=== PATIENT | female | born 1970 | race Caucasian/White ===

== ENCOUNTER 2017-04-29 09:28 | Emergency (ER) | payer SELFPAY ==
[~2017-04-29] VITALS: Ht 170.2 cm; Wt 81.6 kg
[2017-04-29 09:40] VITALS: BP 161/80
[2017-04-29] MEDS ORDERED: KETOROLAC TROMETHAMINE 30 MG/ML INJ. IV ONE (09:45)
[2017-04-29] MEDS ORDERED: ONDANSETRON ODT 4 MG TAB.RAPDIS. PO ONE (09:45)
[2017-04-29] MEDS ORDERED: ONDANSETRON ODT 4 MG TAB.RAPDIS. ONE (09:46)
--- NOTE | 2017-04-29 10:10 | PHYS DOC ---
Past Medical History Past Medical History: Anxiety, Depression, Migraines, Other Additional Past Medical Histor: chronic back pain Past Surgical History: Cholecystectomy, Hysterectomy, Tonsillectomy, Tubal ligation Alcohol Use: None Drug Use: None Adult General Chief Complaint Chief Complaint: ABDOMINAL PAIN HPI HPI Patient is a 46 year old female presents to the emergency department with complaints of low back pain. She states she has long-standing history of low back pain with acute onset 2 days ago after lifting her grandchild. She states that she then began having nausea this morning. She does not report vomiting. She has no urinary symptoms. No abdominal pain. No fever. No loss of function of lower extremities or loss of bowel or bladder control. Review of Systems Review of Systems Constitutional: Denies fever or chills [] Eyes: Denies change in visual acuity, redness, or eye pain [] HENT: Denies nasal congestion or sore throat [] Respiratory: Denies cough or shortness of breath [] Cardiovascular: No additional information not addressed in HPI [] GI: Denies abdominal pain, nausea, vomiting, bloody stools or diarrhea [] : Denies dysuria or hematuria [] Musculoskeletal: low back pain Integument: Denies rash or skin lesions [] Neurologic: Denies headache, focal weakness or sensory changes [] Endocrine: Denies polyuria or polydipsia [] Current Medications Current Medications Current Medications Medications (Trade) Dose Ordered Sig/Kayce Start Time Stop Time Status Last Admin Dose Admin Ketorolac Tromethamine (Toradol Im) 60 mg 1X ONCE 04/29/17 10:45 04/29/17 10:46 DC 04/29/17 10:42 60 MG Ketorolac Tromethamine (Toradol) 30 mg 1X ONCE 04/29/17 09:45 04/29/17 10:36 DC Ondansetron HCl (Zofran Odt) 4 mg 1X ONCE 04/29/17 09:45 04/29/17 09:49 DC 04/29/17 09:48 4 MG Allergies Allergies Allergies Coded Allergies Type Severity Reaction Last Updated Verified codeine Allergy Intermediate Itching 04/06/15 No droperidol Allergy Intermediate Anxiety 04/06/15 No lorazepam Allergy Intermediate Anxiety 04/06/15 No prochlorperazine Allergy Intermediate Anxiety 04/06/15 No Physical Exam Physical Exam Constitutional: Well developed, well nourished, no acute distress, non-toxic appearance. [] HENT: Normocephalic, atraumatic, bilateral external ears normal, oropharynx moist, no oral exudates, nose normal. [] Eyes: PERRLA, EOMI, conjunctiva normal, no discharge. [] Neck: Normal range of motion, no tenderness, supple, no stridor. [] Cardiovascular:Heart rate regular rhythm, no murmur [] Lungs & Thorax: Bilateral breath sounds clear to auscultation [] Abdomen: Bowel sounds normal, soft, no tenderness, no masses, no pulsatile masses. [] Skin: Warm, dry, no erythema, no rash. [] Back: No tenderness to palpate diffuse lumbar region. No midline tenderness. Negative straight raise leg test. Extremities: No tenderness, no cyanosis, no clubbing, ROM intact, no edema. [] No saddle anesthesia. Her muscle strength is 5 over 5 in lower extremities DTRs 2 over 4 Neurologic: Alert and oriented X 3, normal motor function, normal sensory function, no focal deficits noted. [] Psychologic: Affect normal, judgement normal, mood normal. [] Current Patient Data Vital Signs Vital Signs Date Time Temp Pulse Resp B/P (MAP) Pulse Ox O2 Delivery O2 Flow Rate FiO2 04/29/17 09:40 98.0 74 16 161/80 (107) 97 Room Air 98.0 EKG EKG [] Radiology/Procedures Radiology/Procedures [][facility] [address] [place] [address] IMAGING REPORT Signed PATIENT: MAGDALENE SWIFT ACCOUNT: [id number] : 1970 LOCATION: ER AGE: 46 SEX: F EXAM STATUS: REG ER ORD. PHYSICIAN: LEROY ALCAZAR APRN REASON: pain, ,midline lumbar, no know injury PROCEDURE: LUMBAR SPINE 2-3V Three-view lumbar spine series History: Low back pain for 3 days. No known injury. Findings: No compression fracture or discitis or osteolytic process or anterolisthesis is seen. There is moderate degenerative disc space narrowing and spurring at L5-S1. There is mild degenerative endplate spurring throughout the rest of the lumbar spine without significant disc space narrowing. The transverse processes are intact. IMPRESSION: Degenerative lumbar spondylosis. No acute osseous abnormality. DICTATED and SIGNED BY: HENRIETTA GUZMÁN MD DATE: 04/29/17 1031 CC: NON,STAFF; REYES EASON MD; LEROY ALCAZAR APRN ~ Course & Med Decision Making Course & Med Decision Making 1018: Since states she's had relief from the nausea after the Zofran by mouth. Patient is currently awaiting IV for administration of IV pain meds. Pain better after IM toradol. Pt advised of xray results, in agreement with plan Pertinent Labs and Imaging studies reviewed. (See chart for details) [] Dragon Disclaimer Dragon Disclaimer This electronic medical record was generated, in whole or in part, using a voice recognition dictation system. Departure Departure Impression: Primary Impression: Back pain Disposition: HOME, SELF-CARE Condition: STABLE Referrals: REYES EASON MD (PCP) Patient Instructions: Back Pain, Adult Additional Instructions: Rest, no lifting over 7 pounds. Ice to affected area when necessary. Follow-up with your primary care provider in 2-3 days. Return to the emergency Department for new symptoms or concerns or worsening of current condition. Scripts Tramadol Hcl (TRAMADOL HCL) 50 Mg Tablet 1 TAB PO PRN Q6HRS Y for PAIN, #20 TAB Prov: LEROY ALCAZAR APRN 04/29/17 Ibuprofen (IBUPROFEN) 600 Mg Tablet 600 MG PO PRN Q8HRS Y for INFLAMMATION, #20 TAB Prov: LEROY ALCAZAR APRN 04/29/17 Cyclobenzaprine Hcl (CYCLOBENZAPRINE HCL) 10 Mg Tablet 1 TAB PO TID, #30 TAB Prov: LEROY ALCAZAR APRN 04/29/17 LEROY ALCAZAR APRN Apr 29, 2017 10:10
--- NOTE | 2017-04-29 10:35 | RAD ---
Three-view lumbar spine series History: Low back pain for 3 days. No known injury. Findings: No compression fracture or discitis or osteolytic process or anterolisthesis is seen. There is moderate degenerative disc space narrowing and spurring at L5-S1. There is mild degenerative endplate spurring throughout the rest of the lumbar spine without significant disc space narrowing. The transverse processes are intact. IMPRESSION: Degenerative lumbar spondylosis. No acute osseous abnormality.
[2017-04-29] MEDS ORDERED: KETOROLAC TROMETHAMINE 60 MG/2 ML INJ. IM ONE (10:45)
[2017-04-29] MEDS ORDERED: CYCL10TA2 PO (10:47)
[2017-04-29] MEDS ORDERED: TRAM50TA PO (10:47)
[2017-04-29] MEDS ORDERED: IBUP-1007 PO (10:47)
== END 2017-04-29 11:09 | disposition home or self-care (01) ==
LOC: ER 09:28
DX: M54.5 Low back pain (principal); R11.0 Nausea; G89.29 Other chronic pain; G43.909 Migraine, unspecified, not intractable, without status migrainosus; Z90.710 Acquired absence of both cervix and uterus; Z90.49 Acquired absence of other specified parts of digestive tract; Z98.51 Tubal ligation status; Z88.5 Allergy status to narcotic agent; Z88.8 Allergy status to other drugs, medicaments and biological substances
CPT/HCPCS: 72100; 96372; 99284; J1885; Q0162

== ENCOUNTER 2018-02-04 14:46 | Emergency (ER) | payer SELFPAY ==
[2018-02-04] MEDS: HYDROcodone/APAP 5/325MG 1 TAB TABLET PO (15:55)
[2018-02-04] MEDS: ONDANSETRON ODT 4 MG TAB.RAPDIS. PO (15:55)
== END 2018-02-04 16:03 | disposition home or self-care (01) ==
LOC: ER 14:46
DX: K02.9 Dental caries, unspecified (principal); G89.29 Other chronic pain; F41.9 Anxiety disorder, unspecified; F32.9 Major depressive disorder, single episode, unspecified; G43.909 Migraine, unspecified, not intractable, without status migrainosus; Z90.49 Acquired absence of other specified parts of digestive tract; Z90.710 Acquired absence of both cervix and uterus; Z98.51 Tubal ligation status; Z88.5 Allergy status to narcotic agent; Z88.8 Allergy status to other drugs, medicaments and biological substances
CPT/HCPCS: 99283; Q0162

== ENCOUNTER 2018-02-21 02:41 | Emergency (ER) | payer SELFPAY ==
[2018-02-21] MEDS: KETOROLAC 60 MG/2 ML INJ. IM (03:21)
== END 2018-02-21 05:00 | disposition home or self-care (01) ==
LOC: ER 02:41
DX: S09.90XA Unspecified injury of head, initial encounter (principal); M54.5 Low back pain; G43.909 Migraine, unspecified, not intractable, without status migrainosus; G89.29 Other chronic pain; F41.9 Anxiety disorder, unspecified; F32.9 Major depressive disorder, single episode, unspecified; Z88.5 Allergy status to narcotic agent; Z88.8 Allergy status to other drugs, medicaments and biological substances; W01.198A Fall on same level from slipping, tripping and stumbling with subsequent striking against other object, initial encounter; Y93.E1 Activity, personal bathing and showering; Y92.89 Other specified places as the place of occurrence of the external cause; Y99.8 Other external cause status
CPT/HCPCS: 70450; 70486; 72131; 72170; 96372; 99284-25; J1885

== ENCOUNTER 2018-08-06 16:25 | Emergency (ER) | payer SELFPAY ==
[~2018-08-06] VITALS: Ht 170.2 cm; Wt 86.2 kg
[~2018-08-06 16:25] MED LIST: AMOX875T PO; CYCL10TA2 PO; IBUP-1007 PO; IBUP-1060 PO; TRAM50TA PO
[2018-08-06 16:42] VITALS: BP 176/102
[2018-08-06] MEDS ORDERED: TRAM50TA PO (17:11)
--- NOTE | 2018-08-06 17:12 | PHYS DOC ---
Past Medical History Past Medical History: Anxiety, Depression, Migraines, Other Additional Past Medical Histor: chronic back pain Past Surgical History: Cholecystectomy, Hysterectomy, Tonsillectomy, Tubal ligation Alcohol Use: None Drug Use: None Adult General Chief Complaint Chief Complaint: BACK PAIN OR INJURY [facility] HPI Patient is a 48 year old female with history of anxiety, depression, migraine headaches, who presents today complaining of 9 out of 10 left low back pain radiating to the left lower extremity that began yesterday after she fell down some steps. Patient states she was already seen at [facility], she states they did x-rays and everything was negative except for DJD of the lumbar spine. She states they did not discharge her with pain medicine. She follows up with Dr. Marquez. Denies any loss of bowel or bladder. Review of Systems Review of Systems Constitutional: Denies fever or chills [] Eyes: Denies change in visual acuity, redness, or eye pain [] HENT: Denies nasal congestion or sore throat [] Respiratory: Denies cough or shortness of breath [] Cardiovascular: No additional information not addressed in HPI [] GI: Denies abdominal pain, nausea, vomiting, bloody stools or diarrhea [] : Denies dysuria or hematuria [] Musculoskeletal: Reports low back pain after fall. Integument: Denies rash or skin lesions [] Neurologic: Denies headache, focal weakness or sensory changes [] Endocrine: Denies polyuria or polydipsia [] All other systems were reviewed and found to be within normal limits, except as documented in this note. Current Medications Current Medications Current Medications Medications (Trade) Dose Ordered Sig/[facility] Start Time Stop Time Status Last Admin Dose Admin Cyclobenzaprine HCl (Flexeril) 10 mg 1X ONCE 08/06/18 17:30 08/06/18 17:30 DC 08/06/18 17:19 10 MG Ketorolac Tromethamine (Toradol Im) 60 mg 1X ONCE 08/06/18 17:30 08/06/18 17:30 DC 08/06/18 17:19 60 MG Allergies Allergies Allergies Coded Allergies Type Severity Reaction Last Updated Verified codeine Allergy Intermediate Itching 04/06/15 No droperidol Allergy Intermediate Anxiety 04/06/15 No lorazepam Allergy Intermediate Anxiety 04/06/15 No prochlorperazine Allergy Intermediate Anxiety 04/06/15 No Physical Exam Physical Exam Constitutional: Well developed, well nourished, no acute distress, non-toxic appearance. [] HENT: Normocephalic, atraumatic, bilateral external ears normal, oropharynx moist, no oral exudates, nose normal. [] Eyes: PERRLA, EOMI, conjunctiva normal, no discharge. [] Neck: Normal range of motion, no tenderness, supple, no stridor. [] Cardiovascular:Heart rate regular rhythm, no murmur [] Lungs & Thorax: Bilateral breath sounds clear to auscultation [] Abdomen: Bowel sounds normal, soft, no tenderness, no masses, no pulsatile masses. [] Skin: Warm, dry, no erythema, no rash. [] Back: moderate left SI joint tenderness no midline tenderness, no CVA tenderness. [] Extremities: No tenderness, no cyanosis, no clubbing, ROM intact, no edema. [] Neurologic: Alert and oriented X 3, normal motor function, normal sensory function, no focal deficits noted. [] Psychologic: Affect normal, judgement normal, mood normal. [] Current Patient Data Vital Signs Vital Signs Date Time Temp Pulse Resp B/P (MAP) Pulse Ox O2 Delivery O2 Flow Rate FiO2 08/06/18 16:42 98.2 64 17 176/102 (126) 97 Room Air 98.2 EKG EKG [] Radiology/Procedures Radiology/Procedures [] Course & Med Decision Making Course & Med Decision Making Pertinent Labs and Imaging studies reviewed. (See chart for details) Patient has low back pain after falling yesterday. Was seen as [facility] had negative xrays. No Cauda equina syndrome symptoms, given Toradol in the Ed. D/C with Tramadol 10 tablets. F/u with Dr. Marquez in the course of this week. Staff Physician Addendum: I was working in the ER during the course of this patient's visit. I was available for consultation as needed, but I was not directly involved in the care of this patient. Dragon Disclaimer Dragon Disclaimer This electronic medical record was generated, in whole or in part, using a voice recognition dictation system. Departure Departure Impression: Primary Impression: Back pain Disposition: 01 HOME, SELF-CARE Condition: STABLE Referrals: RICHELLE MARQUEZ MD (PCP) follow up as soon as you can Patient Instructions: Back Pain, Adult, [id number] Additional Instructions: You were seen for back pain. Please follow up with Dr. Marquez as soon as you can. Scripts Tramadol Hcl (TRAMADOL HCL) 50 Mg Tablet 50 MG PO Q6HRS PRN for PAIN, #10 TAB Prov: YAMILETH GUTIERRES JENNIFER 08/06/18 Problem Qualifiers Primary Impression: Back pain Back pain location: low back pain Chronicity: acute Back pain laterality: left Sciatica presence: with sciatica Sciatica laterality: sciatica of left side Qualified Codes: M54.42 - Lumbago with sciatica, left side YAMILETH GUTIERRES JENNIFER Aug 06, 2018 17:12 ALEAH EPSTEIN MD Aug 10, 2018 07:00
[2018-08-06] MEDS ORDERED: CYCLOBENZAPRINE 10 MG TABLET. PO ONE (17:30)
[2018-08-06] MEDS ORDERED: KETOROLAC 60 MG/2 ML INJ. IM ONE (17:30)
== END 2018-08-06 17:28 | disposition home or self-care (01) ==
LOC: ER 16:25
DX: M54.42 Lumbago with sciatica, left side (principal); F41.9 Anxiety disorder, unspecified; F32.9 Major depressive disorder, single episode, unspecified; G43.909 Migraine, unspecified, not intractable, without status migrainosus; Z90.49 Acquired absence of other specified parts of digestive tract; Z90.89 Acquired absence of other organs; Z90.710 Acquired absence of both cervix and uterus; Z98.51 Tubal ligation status; Z88.8 Allergy status to other drugs, medicaments and biological substances; Z88.5 Allergy status to narcotic agent
CPT/HCPCS: 96372; 99283; J1885

== ENCOUNTER 2021-07-01 01:03 | Inpatient (IN) | payer SELFPAY ==
[~2021-07-01] VITALS: Ht 170.2 cm; Wt 74.1 kg
--- NOTE | 2021-07-01 01:15 | ED.ADGEN ---
Past Medical History Past Medical History: Anxiety, Depression, Migraines, Other Additional Past Medical Histor: chronic back pain Past Surgical History: Cholecystectomy, Hysterectomy, Tonsillectomy, Tubal ligation Smoking Status: Never Smoker Alcohol Use: None Drug Use: None General Adult EDM: Chief Complaint: SYNCOPE HPI: HPI: Patient is a 51 year old female brought in by EMS after syncopal episode. Patient states she had been up watching a movie when she got up to use the restroom and next thing she knew EMS was at her house. Denies any pain or head injury. Patient states she is had multiple episodes of nearly passing out over the past week. She was diagnosed with COVID-19 5 days ago. States she is not been having any more fevers and denies any extremity swelling. Satting in the mid 90s on room air. Review of Systems: Review of Systems: All other systems within normal limits except for as noted in the HPI Current Medications: Current Medications Medications (Trade) Dose Ordered Sig/Kayce Start Time Stop Time Status Last Admin Dose Admin Acetaminophen (Tylenol) 650 mg PRN Q4HRS PRN 07/01/21 03:30 07/02/21 03:29 UNV Info (CONTRAST GIVEN -- Rx MONITORING) 1 each PRN DAILY PRN 07/01/21 02:30 07/03/21 02:29 Iohexol (Omnipaque 350 Mg/ml) 80 ml 1X ONCE 07/01/21 03:00 07/01/21 03:01 DC Morphine Sulfate (Morphine Sulfate) 2 mg PRN Q2HR PRN 07/01/21 03:30 07/02/21 03:29 UNV Ondansetron HCl (Zofran) 4 mg PRN Q8HRS PRN 07/01/21 03:30 07/02/21 03:29 UNV Potassium Chloride (Klor-Con) 40 meq 1X ONCE 07/01/21 03:00 07/01/21 03:01 DC Sodium Chloride 1,000 ml @ 100 mls/hr Q10H 07/01/21 03:30 07/02/21 03:29 UNV Allergies: Allergies: Allergies Coded Allergies Type Severity Reaction Last Updated Verified codeine Allergy Intermediate Itching 04/06/15 No droperidol Allergy Intermediate Anxiety 04/06/15 No lorazepam Allergy Intermediate Anxiety 04/06/15 No prochlorperazine Allergy Intermediate Anxiety 04/06/15 No Physical Exam: PE: Constitutional: Well developed, well nourished, no acute distress, non-toxic appearance. [] HENT: Normocephalic, atraumatic, bilateral external ears normal, nose normal. [] Eyes: PERRLA, conjunctiva normal, no discharge. [] Neck: No rigidity, supple, no stridor. [] Cardiovascular: Regular rate and rhythm, brisk cap refill [] Lungs & Thorax: Non labored symmetric respirations, no tachypnea or respiratory distress [] Abdomen: Soft, nondistended. Skin: Warm, dry, no erythema, no rash. [] Back: Unremarkable Extremities: No deformities, range of motion grossly intact, no lower extremity edema [] Neurologic: Alert and oriented X 3, no focal deficits noted. [] Psychologic: Affect normal, judgement normal, mood normal. [] Current Patient Data: Labs: Laboratory Tests Test 07/01/21 01:30 White Blood Count 7.0 x10^3/uL (4.0-11.0) Red Blood Count 4.46 x10^6/uL (3.50-5.40) Hemoglobin 13.0 g/dL (12.0-15.5) Hematocrit 37.0 % (36.0-47.0) Mean Corpuscular Volume 83 fL (79-100) Mean Corpuscular Hemoglobin 29 pg (25-35) Mean Corpuscular Hemoglobin Concent 35 g/dL (31-37) Red Cell Distribution Width 13.6 % (11.5-14.5) Platelet Count 173 x10^3/uL (140-400) Neutrophils (%) (Auto) 69 % (31-73) Lymphocytes (%) (Auto) 20 % (24-48) L Monocytes (%) (Auto) 10 % (0-9) H Eosinophils (%) (Auto) 2 % (0-3) Basophils (%) (Auto) 1 % (0-3) Neutrophils # (Auto) 4.8 x10^3/uL (1.8-7.7) Lymphocytes # (Auto) 1.4 x10^3/uL (1.0-4.8) Monocytes # (Auto) 0.7 x10^3/uL (0.0-1.1) Eosinophils # (Auto) 0.1 x10^3/uL (0.0-0.7) Basophils # (Auto) 0.0 x10^3/uL (0.0-0.2) D-Dimer (Lilia) 0.36 ug/mlFEU (0.00-0.50) Sodium Level 123 mmol/L (136-145) L Potassium Level 3.1 mmol/L (3.5-5.1) L Chloride Level 89 mmol/L (98-107) L Carbon Dioxide Level 25 mmol/L (21-32) Anion Gap 9 (6-14) Blood Urea Nitrogen 8 mg/dL (7-20) Creatinine 1.1 mg/dL (0.6-1.0) H Estimated GFR (Cockcroft-Gault) 52.8 BUN/Creatinine Ratio 7 (6-20) Glucose Level 119 mg/dL (70-99) H Lactic Acid Level 1.0 mmol/L (0.4-2.0) Calcium Level 8.1 mg/dL (8.5-10.1) L Phosphorus Level 2.3 mg/dL (2.6-4.7) L Magnesium Level 1.8 mg/dL (1.8-2.4) Total Bilirubin 0.5 mg/dL (0.2-1.0) Aspartate Amino Transferase (AST) 49 U/L (15-37) H Alanine Aminotransferase (ALT) 51 U/L (14-59) Alkaline Phosphatase 160 U/L (46-116) H Troponin I Quantitative < 0.017 ng/mL (0.000-0.055) ES-Cne-I-Type Natriuretic Peptide 267 pg/mL (0-124) H Total Protein 7.4 g/dL (6.4-8.2) Albumin 3.1 g/dL (3.4-5.0) L Albumin/Globulin Ratio 0.7 (1.0-1.7) L Laboratory Tests 07/01/21 01:30 Laboratory Tests 07/01/21 01:30 Vital Signs: Vital Signs Date Time Temp Pulse Resp B/P (MAP) Pulse Ox O2 Delivery O2 Flow Rate FiO2 07/01/21 01:40 52 16 131/63 (85) 97 Room Air 07/01/21 01:11 98.2 98.2 EKG: EKG: Sinus rhythm, heart rate 51 beats minute, right axis deviation, no ST elevation or depression. [] Heart Score: C/O Chest Pain: No HEART Score for Chest Pain: HEART Score for Chest Pain Response (Comments) Value History Slighlty/Non-Suspicious 0 ECG Normal 0 Age >45 - < 65 1 Risk Factors 1 or 2 Risk Factors 1 Troponin < Normal Limit 0 Total 2 Risk Factors: Risk Factors: DM, Current or recent (<one month) smoker, HTN, HLP, family h istory of CAD, obesity. Risk Scores: Score 0 - 3: 2.5% MACE over next 6 weeks - Discharge Home Score 4 - 6: 20.3% MACE over next 6 weeks - Admit for Clinical Observation Score 7 - 10: 72.7% MACE over next 6 weeks - Early Invasive Strategies Radiology/Procedures: Radiology/Procedures: [] Course & Med Decision Making: Course & Med Decision Making Dimer negative but feeling blue when trying to obtain CTA. Admit for hyponatremia and syncope. Dragon Disclaimer: Dragon Disclaimer: This electronic medical record was generated, in whole or in part, using a voice recognition dictation system. Departure Departure Impression: Primary Impression: Syncope Additional Impressions: Hyponatremia COVID-19 Disposition: 09 ADMITTED INPATIENT Admitting Physician: HIMEli Condition: STABLE Referrals: RICHELLE ANN MD (PCP) Problem Qualifiers CECY ROWLAND MD Jul 01, 2021 01:15
[2021-07-01] MEDS ORDERED: IV NORMAL SALINE 1000ML BAG 1,000 ML IV ONE (01:30)
--- NOTE | 2021-07-01 01:35 | EKG ---
[facility] [address] [place] [address] Test Date: 2021-07-01 Test Time: 01:21:11 Pat Name: MAGDALENE SWIFT Department: Room: Gender: F [employer]: [id number] : 1970 Requested By: CECY ROWLAND Order Number: [id number] Reading MD: Measurements Intervals [place] Rate: 51 P: 150 MI: 148 QRS: 174 QRSD: 96 T: 140 QT: 476 QTc: 441 Interpretive Statements SUPRAVENTRICULAR RHYTHM ABNORMAL RIGHT AXIS DEVIATION QRS(T) CONTOUR ABNORMALITY CONSISTENT WITH HIGH LATERAL INFARCT AGE UNDETERMINED ABNORMAL ECG RI6.02 No previous ECG available for comparison
[2021-07-01 01:48] LABS: BASO % 1 % (0-3); EOS # 0.1 x10^3/uL (0.0-0.7); EOS % 2 % (0-3); LYMPH # 1.4 x10^3/uL (1.0-4.8); LYMPH % 20 % (24-48); MEAN CORPUSCULAR HEMOGLOBIN 29 pg (25-35); MEAN CORPUSCULAR HGB CONC 35 g/dL (31-37); MEAN CORPUSCULAR VOLUME 83 fL (79-100); MONO # 0.7 x10^3/uL (0.0-1.1); MONO % 10 % (0-9); NEUT # 4.8 x10^3/uL (1.8-7.7); NEUT % 69 % (31-73); PLATELET COUNT 173 x10^3/uL (140-400); RED BLOOD COUNT 4.46 x10^6/uL (3.50-5.40); RED CELL DISTRIBUTION WIDTH 13.6 % (11.5-14.5)
[2021-07-01 02:04] LABS: CALCIUM 8.1 mg/dL (8.5-10.1); CREATININE 1.1 mg/dL (0.6-1.0); GFR 52.8; POTASSIUM 3.1 mmol/L (3.5-5.1)
[2021-07-01 02:09] LABS: ALBUMIN 3.1 g/dL (3.4-5.0); ALBUMIN/GLOBULIN RATIO 0.7 (1.0-1.7); MAGNESIUM 1.8 mg/dL (1.8-2.4); PHOSPHORUS 2.3 mg/dL (2.6-4.7); TOTAL BILIRUBIN 0.5 mg/dL (0.2-1.0); TOTAL PROTEIN 7.4 g/dL (6.4-8.2)
[2021-07-01] MEDS ORDERED: CONTRAST GIVEN. MC PRN (02:30)
[2021-07-01] MEDS ORDERED: POTASSIUM CHLORIDE 20 MEQ TABLET.ER. PO ONE (03:00)
[2021-07-01] MEDS ORDERED: IOHEXOL 350 MG/ML 100 ML VIAL. IV ONE (03:00)
[2021-07-01] MEDS ORDERED: ACETAMINOPHEN 325 MG TABLET. PO PRN (03:30)
[2021-07-01] MEDS ORDERED: ONDANSETRON PF 4 MG/2 ML VIAL. IVP PRN (03:30)
[2021-07-01] MEDS: IV NORMAL SALINE 1000ML BAG 1,000 ML IV SCH ×3 (03:49→22:03)
[2021-07-01 04:53] LABS: BILIRUBIN,URINE NEGATIVE (NEG); CLARITY,URINE CLEAR; COLOR,URINE YELLOW; NITRITE,URINE NEGATIVE (NEG); PH,URINE 7.5 (<5.0-8.0); PROTEIN,URINE NEGATIVE (NEG-TRACE); UROBILINOGEN,URINE 0.2 mg/dL (0.2 mg/dL)
[2021-07-01 04:55] LABS: U PREG PATIENT NEGATIVE (NEG)
[2021-07-01 04:59] LABS: BACTERIA,URINE FEW /HPF (0-FEW); RBC,URINE OCC /HPF (0-2); WBC,URINE OCC /HPF (0-4)
--- NOTE | 2021-07-01 07:01 | RAD ---
AP chest. HISTORY: Covid-19 AP view was taken of the chest. There are mild hazy bilateral infiltrates system with Covid 19 pneumo tio. Heart is normal in size. There is no pleural effusion. IMPRESSION: 1. Mild bilateral infiltrates. Electronically signed by: Bill Wallace MD (07/01/2021 6:59 AM) [id number]
[2021-07-01] MEDS: DEXAMETHASONE SOD PHOS 4 MG/ML VIAL IVP SCH (09:38)
[2021-07-01 09:53] LABS: CALCIUM 7.9 mg/dL (8.5-10.1); CREATININE 1.1 mg/dL (0.6-1.0); GFR 52.8
[2021-07-01] MEDS: MORPHINE SULFATE 2 MG/ML INJ. IVP PRN ×2 (11:48→20:55)
[2021-07-01] MEDS ORDERED: REMDESIVIR LOAD in IV NORMAL SALINE 250ML TV IV ONE (14:00)
[2021-07-01] MEDS ORDERED: ALPR0.5T PO (14:51)
[2021-07-01] MEDS ORDERED: SERT50TA PO (14:51)
[2021-07-01] MEDS ORDERED: LEVO25TA4 PO (14:51)
[2021-07-01] MEDS ORDERED: SERT100T PO (14:51)
[2021-07-01] MEDS ORDERED: TIZA4TAB2 PO (14:54)
[2021-07-01 16:00] VITALS: BP 116/67
[2021-07-01] MEDS ORDERED: traMADol 50 MG TABLET PO PRN ×2 (16:00)
--- NOTE | 2021-07-01 16:10 | PDOC ---
GENERAL General: History and physical [id number] VITAL SIGNS Vital Signs/I&O: Vital Signs Date Time Temp Pulse Resp B/P (MAP) Pulse Ox O2 Delivery O2 Flow Rate FiO2 07/01/21 11:48 20 07/01/21 09:32 46 134/76 (95) 98 Room Air 07/01/21 01:11 98.2 98.2 ALLERGIES Allergies: Allergies Coded Allergies Type Severity Reaction Last Updated Verified codeine Allergy Intermediate Itching 04/06/15 No droperidol Allergy Intermediate Anxiety 04/06/15 No lorazepam Allergy Intermediate Anxiety 04/06/15 No prochlorperazine Allergy Intermediate Anxiety 04/06/15 No MEDS Medications: Current Medications Medications (Trade) Dose Ordered Sig/Kayce Route PRN Reason Start Time Stop Time Status Last Admin Dose Admin Sodium Chloride 1,000 ml @ 1,000 mls/hr 1X ONCE IV 07/01/21 01:30 07/01/21 02:30 DC 07/01/21 01:30 Potassium Chloride (Klor-Con) 40 meq 1X ONCE PO 07/01/21 03:00 07/01/21 03:01 DC 07/01/21 03:49 Morphine Sulfate (Morphine Sulfate) 2 mg PRN Q2HR PRN IVP SEVERE PAIN 7-10 07/01/21 03:30 07/02/21 03:29 07/01/21 11:48 Sodium Chloride 1,000 ml @ 100 mls/hr Q10H IV 07/01/21 04:00 07/02/21 03:59 07/01/21 13:05 Acetaminophen (Tylenol) 650 mg PRN Q4HRS PRN PO FEVER > 100.3'F 07/01/21 03:30 07/02/21 03:29 07/01/21 11:48 Dexamethasone Sodium Phosphate (Decadron) 6 mg DAILY IVP 07/01/21 09:00 07/01/21 09:38 Remdesivir 200 mg/ Sodium Chloride 210 ml @ 210 mls/hr 1X ONCE IV 07/01/21 14:00 07/01/21 14:59 DC 07/01/21 14:56 LAB Lab: Laboratory Tests Test 07/01/21 01:30 07/01/21 04:40 07/01/21 09:15 07/01/21 14:30 White Blood Count 7.0 x10^3/uL (4.0-11.0) Red Blood Count 4.46 x10^6/uL (3.50-5.40) Hemoglobin 13.0 g/dL (12.0-15.5) Hematocrit 37.0 % (36.0-47.0) Mean Corpuscular Volume 83 fL (79-100) Mean Corpuscular Hemoglobin 29 pg (25-35) Mean Corpuscular Hemoglobin Concent 35 g/dL (31-37) Red Cell Distribution Width 13.6 % (11.5-14.5) Platelet Count 173 x10^3/uL (140-400) Neutrophils (%) (Auto) 69 % (31-73) Lymphocytes (%) (Auto) 20 % (24-48) L Monocytes (%) (Auto) 10 % (0-9) H Eosinophils (%) (Auto) 2 % (0-3) Basophils (%) (Auto) 1 % (0-3) Neutrophils # (Auto) 4.8 x10^3/uL (1.8-7.7) Lymphocytes # (Auto) 1.4 x10^3/uL (1.0-4.8) Monocytes # (Auto) 0.7 x10^3/uL (0.0-1.1) Eosinophils # (Auto) 0.1 x10^3/uL (0.0-0.7) Basophils # (Auto) 0.0 x10^3/uL (0.0-0.2) D-Dimer (Lilia) 0.36 ug/mlFEU (0.00-0.50) Sodium Level 123 mmol/L (136-145) L 134 mmol/L (136-145) #L Potassium Level 3.1 mmol/L (3.5-5.1) L 3.0 mmol/L (3.5-5.1) L Chloride Level 89 mmol/L (98-107) L 99 mmol/L (98-107) Carbon Dioxide Level 25 mmol/L (21-32) 28 mmol/L (21-32) Anion Gap 9 (6-14) 7 (6-14) Blood Urea Nitrogen 8 mg/dL (7-20) 8 mg/dL (7-20) Creatinine 1.1 mg/dL (0.6-1.0) H 1.1 mg/dL (0.6-1.0) H Estimated GFR (Cockcroft-Gault) 52.8 52.8 BUN/Creatinine Ratio 7 (6-20) Glucose Level 119 mg/dL (70-99) H 105 mg/dL (70-99) H Lactic Acid Level 1.0 mmol/L (0.4-2.0) Calcium Level 8.1 mg/dL (8.5-10.1) L 7.9 mg/dL (8.5-10.1) L Phosphorus Level 2.3 mg/dL (2.6-4.7) L Magnesium Level 1.8 mg/dL (1.8-2.4) Total Bilirubin 0.5 mg/dL (0.2-1.0) Aspartate Amino Transferase (AST) 49 U/L (15-37) H Alanine Aminotransferase (ALT) 51 U/L (14-59) Alkaline Phosphatase 160 U/L (46-116) H Troponin I Quantitative < 0.017 ng/mL (0.000-0.055) < 0.017 ng/mL (0.000-0.055) < 0.017 ng/mL (0.000-0.055) OL-Hyv-D-Type Natriuretic Peptide 267 pg/mL (0-124) H Total Protein 7.4 g/dL (6.4-8.2) Albumin 3.1 g/dL (3.4-5.0) L Albumin/Globulin Ratio 0.7 (1.0-1.7) L Urine Collection Type Unknown Urine Color Yellow Urine Clarity Clear Urine pH 7.5 (<5.0-8.0) Urine Specific [place] <=1.005 (1.000-1.030) Urine Protein Negative mg/dL (NEG-TRACE) Urine Glucose (UA) Negative mg/dL (NEG) Urine Ketones (Stick) Negative mg/dL (NEG) Urine Blood Negative (NEG) Urine Nitrite Negative (NEG) Urine Bilirubin Negative (NEG) Urine Urobilinogen Dipstick 0.2 mg/dL (0.2 mg/dL) Urine Leukocyte Esterase Negative (NEG) Urine RBC Occ /HPF (0-2) Urine WBC Occ /HPF (0-4) Urine Squamous Epithelial Cells Few /LPF Urine Bacteria Few /HPF (0-FEW) Urine Test Negative (NEG) Laboratory Tests 8/29/21 01:30 Laboratory Tests 07/01/21 01:30 07/01/21 09:15 Justifications for Admission Other Justification ZAC NORTH MD Jul 01, 2021 16:10
[2021-07-01] MEDS ORDERED: HYDR-2761 PO (16:22)
[2021-07-01] MEDS ORDERED: ACETAMINOPHEN 650 MG/20.3 ML SOLUTION. PEG PRN (17:45)
[2021-07-01] MEDS: HYDROcodone/APAP 5/325MG 1 TAB TABLET PO PRN (17:56)
--- NOTE | 2021-07-01 18:07 | HP ---
ADMIT DATE: 07/01/2021 HISTORY OF PRESENT ILLNESS: This patient is a 51-year-old woman who sees the [facility] in [place] for continuity primary care. She presented to the Emergency Department early today with near syncope and syncope in the setting of COVID diagnosed 5 days ago. She lives with her daughter and father, both of whom are vaccinated for COVID, the patient is not. The patient's 76-year-old father is feeling well and has tested negative for disease, but her young daughter despite the vaccination does have COVID as well, although less symptoms. The patient tells me that she has felt overwhelming weakness, malaise, and just generally feeling lousy for the last week or so. She has not had any nausea, vomiting, change in her bowel habits. She denies any cough or congestion. She has not been able to keep up with her hydration and just does not feel like eating. She has had several events where she felt like she would faint and then finally last night, had a full syncopal event and the next thing that she remembered is 911 was taking her to the hospital. I am seeing her now about 12 hours after admission and she is feeling a little bit better after IV hydration. I saw her in the company of her nurse. She has not had any telemetry events, though has had sinus bradycardia since her presentation here early this morning. I had a chance to discuss her case with Pulmonary Critical Care earlier today and on reviewing her information, they found her to be a good candidate for remdesivir and 10 days of tapering intravenous steroids, those have already been started. All other systems reviewed and negative. PAST MEDICAL HISTORY: 1. Chronic depression and anxiety. 2. Hypothyroidism. 3. Chronic low back pain. MEDICATIONS: Please see the medication reconciliation form. SOCIAL HISTORY: The patient is single. She lives with her father and daughter and grandchildren. She is not working at this point, taking care of her grandchildren. She does not take any tobacco, alcohol or illicit drugs. She is and has her care at the [facility] in [place]. She is a full code. FAMILY HISTORY: Reviewed and full and noncontributory to the present illness. PHYSICAL EXAMINATION: VITAL SIGNS: Reviewed since admission and are notable for that the patient has been afebrile, blood pressure has been in the 100s to 120s over 60s, heart rate is in the 50s and regular. She is breathing comfortably and saturating 97% on room air. GENERAL: The patient is pleasant, alert and oriented x 3, in no acute distress. HEENT: Unremarkable for acute abnormality. NECK: Soft and supple. No adenopathy or thyromegaly noted. CHEST: Clear to auscultation. HEART: S1, S2 normal. Bradycardic. No murmurs or gallops are noted. ABDOMEN: Soft, nontender, nondistended. No masses or organomegaly noted. EXTREMITIES: Unremarkable for acute abnormality. LABORATORY DATA AND OTHER STUDIES: Admission potassium is 3.0, sodium is 134, creatinine is 1.1. Troponin negative x 3. Blood count is normal. Urinalysis is negative. EKG reports sinus bradycardia without any other abnormality. I am unable to visualize that. Chest x-ray is notable for mild bilateral infiltrates. ASSESSMENT AND PLAN/IMPRESSION: A 51-year-old woman admitted with COVID-19 presenting with near syncope and then syncope, found to be bradycardic and dehydrated. We have started remdesivir and dexamethasone per protocol. I have spoken with Pulmonary Critical Care on this patient and we have decided that as long as her respiratory status is stable, the Pulmonary team does not necessarily need to be involved in her care while here. Given the bradycardia and the symptoms of lightheadedness and then syncope, we will consult Cardiology and I have written for an echo in the morning. Their assistance is appreciated. The patient may use sequential compression devices for deep vein thrombosis prophylaxis. Inpatient status is most appropriate as we anticipate a length of stay of 3-4 midnights while we work this through. PAULA/ELLIOT JASMINE: Jarad TID: [id number] [facility]
[2021-07-01 19:00] VITALS: BP 130/60
[2021-07-01] MEDS: ALPRAZolam 0.5 MG TABLET PO PRN (20:56)
[2021-07-01 23:02] VITALS: BP 132/60
[2021-07-02] VITALS (7 sets, daily range): BP systolic 129–171; BP diastolic 62–88
[2021-07-02] MEDS: HYDROcodone/APAP 5/325MG 1 TAB TABLET PO PRN ×5 (01:07→21:05)
--- NOTE | 2021-07-02 02:01 | EKG ---
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
--- NOTE | 2021-07-02 02:07 | EKG ---
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
[2021-07-02] MEDS: MORPHINE SULFATE 2 MG/ML INJ. IVP PRN (02:47)
[2021-07-02] MEDS: ALPRAZolam 0.5 MG TABLET PO PRN ×2 (05:49→21:05)
[2021-07-02] MEDS: LEVOTHYROXINE 25 MCG TABLET. PO SCH (05:49)
--- NOTE | 2021-07-02 08:57 | PDOC ---
PROGRESS NOTES Date of Service: DATE: 07/02/21 TIME: 08:57 Chief Complaint Chief Complaint ASSESSMENT AND PLAN COVID-19 Mild bilateral infiltrates. near syncope and then syncope, bradycardic and dehydrated. hypokalemia plan started remdesivir and dexamethasone per protocol. Given the bradycardia / symptoms of lightheadedness and then syncope, consult Cardiology echo replace k sequential compression devices for deep vein thrombosis prophylaxis. Inpatient status is most appropriate as we anticipate a length of stay of 3-4 midnights d./w rn History of Present Illness History of Present Illness HISTORY OF PRESENT ILLNESS: This patient is a 51-year-old woman who sees the [facility] in [place] for continuity primary care. She presented to the Emergency Department early today with near syncope and syncope in the setting of COVID diagnosed 5 days ago. She lives with her daughter and father, both of whom are vaccinated for COVID, the patient is not. The patient's 76-year-old father is feeling well and has tested negative for disease, but her young daughter despite the vaccination does have COVID as well, although less symptoms. The patient tells me that she has felt overwhelming weakness, malaise, and just generally feeling lousy for the last week or so. She has not had any nausea, vomiting, change in her bowel habits. She denies any cough or congestion. She has not been able to keep up with her hydration and just does not feel like eating. She has had several events where she felt like she would faint and then finally last night, had a full syncopal event and the next thing that she remembered is 911 was taking her to the hospital. I am seeing her now about 12 hours after admission and she is feeling a little bit better after IV hydration. I saw her in the company of her nurse. She has not had any telemetry events, though has had sinus bradycardia since her presentation here early this morning. I had a chance to discuss her case with Pulmonary Critical Care earlier today and on reviewing her information, they found her to be a good candidate for remdesivir and 10 days of tapering intravenous steroids, those have already been started. All other systems reviewed and negative. PAST MEDICAL HISTORY: 1. Chronic depression and anxiety. 2. Hypothyroidism. 3. Chronic low back pain. Vitals Vitals Vital Signs Date Time Temp Pulse Resp B/P (MAP) Pulse Ox O2 Delivery O2 Flow Rate FiO2 07/02/21 06:19 20 Room Air 07/02/21 03:00 97.8 74 129/62 (84) 99 97.8 Physical Exam Physical Exam GENERAL: The patient is pleasant, alert and oriented x 3, in no acute distress. HEENT: Unremarkable for acute abnormality. NECK: Soft and supple. No adenopathy or thyromegaly noted. CHEST: Clear to auscultation. HEART: S1, S2 normal. Bradycardic. No murmurs or gallops are noted. ABDOMEN: Soft, nontender, nondistended. No masses or organomegaly noted. EXTREMITIES: Unremarkable for acute abnormality. General: Alert, Oriented X3, Cooperative, No acute distress Heart: Regular rate Lungs: Clear Abdomen: Normal bowel sounds, Soft Extremities: No clubbing, No cyanosis Labs LABS PATIENT: MAGDALENE SWIFT ACCOUNT: [id number] : 1970 LOCATION: ED HOLD AGE: 51 SEX: F EXAM STATUS: ADM IN ORD. PHYSICIAN: CECY ROWLAND MD REASON: covid PROCEDURE: CHEST AP ONLY AP chest. HISTORY: Covid-19 AP view was taken of the chest. There are mild hazy bilateral infiltrates system with Covid 19 pneumonia. Heart is normal in size. There is no pleural effusion. IMPRESSION: 1. Mild bilateral infiltrates. Electronically signed by: Bill Wallace MD (07/01/2021 6:59 AM) [id number] DICTATED and SIGNED BY: BILL WALLACE MD DATE: 07/01/21 [id number] Laboratory Tests Test 07/01/21 09:15 07/01/21 14:30 Sodium Level 134 mmol/L (136-145) Potassium Level 3.0 mmol/L (3.5-5.1) Chloride Level 99 mmol/L (98-107) Carbon Dioxide Level 28 mmol/L (21-32) Anion Gap 7 (6-14) Blood Urea Nitrogen 8 mg/dL (7-20) Creatinine 1.1 mg/dL (0.6-1.0) Estimated GFR (Cockcroft-Gault) 52.8 Glucose Level 105 mg/dL (70-99) Calcium Level 7.9 mg/dL (8.5-10.1) Troponin I Quantitative < 0.017 ng/mL (0.000-0.055) < 0.017 ng/mL (0.000-0.055) Assessment and Plan Assessmemt and Plan Problems Medical Problems: (1) COVID-19 Status: Acute (2) Hyponatremia Status: Acute (3) Syncope Status: Acute Comment Review of Relevant I have reviewed the following items cory (where applicable) has been applied. Labs Laboratory Tests Test 07/01/21 01:30 07/01/21 04:40 07/01/21 09:15 07/01/21 14:30 White Blood Count 7.0 x10^3/uL (4.0-11.0) Red Blood Count 4.46 x10^6/uL (3.50-5.40) Hemoglobin 13.0 g/dL (12.0-15.5) Hematocrit 37.0 % (36.0-47.0) Mean Corpuscular Volume 83 fL (79-100) Mean Corpuscular Hemoglobin 29 pg (25-35) Mean Corpuscular Hemoglobin Concent 35 g/dL (31-37) Red Cell Distribution Width 13.6 % (11.5-14.5) Platelet Count 173 x10^3/uL (140-400) Neutrophils (%) (Auto) 69 % (31-73) Lymphocytes (%) (Auto) 20 % (24-48) Monocytes (%) (Auto) 10 % (0-9) Eosinophils (%) (Auto) 2 % (0-3) Basophils (%) (Auto) 1 % (0-3) Neutrophils # (Auto) 4.8 x10^3/uL (1.8-7.7) Lymphocytes # (Auto) 1.4 x10^3/uL (1.0-4.8) Monocytes # (Auto) 0.7 x10^3/uL (0.0-1.1) Eosinophils # (Auto) 0.1 x10^3/uL (0.0-0.7) Basophils # (Auto) 0.0 x10^3/uL (0.0-0.2) D-Dimer (Lilia) 0.36 ug/mlFEU (0.00-0.50) Sodium Level 123 mmol/L (136-145) 134 mmol/L (136-145) Potassium Level 3.1 mmol/L (3.5-5.1) 3.0 mmol/L (3.5-5.1) Chloride Level 89 mmol/L (98-107) 99 mmol/L (98-107) Carbon Dioxide Level 25 mmol/L (21-32) 28 mmol/L (21-32) Anion Gap 9 (6-14) 7 (6-14) Blood Urea Nitrogen 8 mg/dL (7-20) 8 mg/dL (7-20) Creatinine 1.1 mg/dL (0.6-1.0) 1.1 mg/dL (0.6-1.0) Estimated GFR (Cockcroft-Gault) 52.8 52.8 BUN/Creatinine Ratio 7 (6-20) Glucose Level 119 mg/dL (70-99) 105 mg/dL (70-99) Lactic Acid Level 1.0 mmol/L (0.4-2.0) Calcium Level 8.1 mg/dL (8.5-10.1) 7.9 mg/dL (8.5-10.1) Phosphorus Level 2.3 mg/dL (2.6-4.7) Magnesium Level 1.8 mg/dL (1.8-2.4) Total Bilirubin 0.5 mg/dL (0.2-1.0) Aspartate Amino Transf (AST/SGOT) 49 U/L (15-37) Alanine Aminotransferase (ALT/SGPT) 51 U/L (14-59) Alkaline Phosphatase 160 U/L (46-116) Troponin I Quantitative < 0.017 ng/mL (0.000-0.055) < 0.017 ng/mL (0.000-0.055) < 0.017 ng/mL (0.000-0.055) EW-Lqi-M-Type Natriuretic Peptide 267 pg/mL (0-124) Total Protein 7.4 g/dL (6.4-8.2) Albumin 3.1 g/dL (3.4-5.0) Albumin/Globulin Ratio 0.7 (1.0-1.7) Urine Collection Type Unknown Urine Color Yellow Urine Clarity Clear Urine pH 7.5 (<5.0-8.0) Urine Specific [place] <=1.005 (1.000-1.030) Urine Protein Negative mg/dL (NEG-TRACE) Urine Glucose (UA) Negative mg/dL (NEG) Urine Ketones (Stick) Negative mg/dL (NEG) Urine Blood Negative (NEG) Urine Nitrite Negative (NEG) Urine Bilirubin Negative (NEG) Urine Urobilinogen Dipstick 0.2 mg/dL (0.2 mg/dL) Urine Leukocyte Esterase Negative (NEG) Urine RBC Occ /HPF (0-2) Urine WBC Occ /HPF (0-4) Urine Squamous Epithelial Cells Few /LPF Urine Bacteria Few /HPF (0-FEW) Urine Test Negative (NEG) Laboratory Tests Test 07/01/21 09:15 07/01/21 14:30 Sodium Level 134 mmol/L (136-145) Potassium Level 3.0 mmol/L (3.5-5.1) Chloride Level 99 mmol/L (98-107) Carbon Dioxide Level 28 mmol/L (21-32) Anion Gap 7 (6-14) Blood Urea Nitrogen 8 mg/dL (7-20) Creatinine 1.1 mg/dL (0.6-1.0) Estimated GFR (Cockcroft-Gault) 52.8 Glucose Level 105 mg/dL (70-99) Calcium Level 7.9 mg/dL (8.5-10.1) Troponin I Quantitative < 0.017 ng/mL (0.000-0.055) < 0.017 ng/mL (0.000-0.055) Medications Current Medications Sodium Chloride 1,000 ml @ 1,000 mls/hr 1X ONCE IV Last administered on 07/01/21at 01:30; Start 07/01/21 at 01:30; Stop 07/01/21 at 02:30; Status DC Iohexol (Omnipaque 350 Mg/ml) 80 ml 1X ONCE IV ; Start 07/01/21 at 03:00; Stop 07/01/21 at 03:01; Status DC Info (CONTRAST GIVEN -- Rx MONITORING) 1 each PRN DAILY PRN MC SEE COMMENTS; Start 07/01/21 at 02:30; Stop 07/03/21 at 02:29 Potassium Chloride (Klor-Con) 40 meq 1X ONCE PO Last administered on 07/01/21at 03:49; Start 07/01/21 at 03:00; Stop 07/01/21 at 03:01; Status DC Ondansetron HCl (Zofran) 4 mg PRN Q8HRS PRN IVP NAUSEA/VOMITING 1ST CHOICE Last administered on 07/01/21at 17:56; Start 07/01/21 at 03:30; Stop 07/02/21 at 03:29; Status DC Morphine Sulfate (Morphine Sulfate) 2 mg PRN Q2HR PRN IVP SEVERE PAIN 7-10 Last administered on 07/02/21at 02:47; Start 07/01/21 at 03:30; Stop 07/02/21 at 03:29; Status DC Sodium Chloride 1,000 ml @ 100 mls/hr Q10H IV Last administered on 07/01/21at 22:03; Start 07/01/21 at 04:00; Stop 07/02/21 at 03:59; Status DC Acetaminophen (Tylenol) 650 mg PRN Q4HRS PRN PO FEVER > 100.3'F Last administered on 07/01/21at 11:48; Start 07/01/21 at 03:30; Stop 07/01/21 at 17:42; Status DC Dexamethasone Sodium Phosphate (Decadron) 6 mg DAILY IVP Last administered on 07/01/21at 09:38; Start 07/01/21 at 09:00 Remdesivir 200 mg/ Sodium Chloride 210 ml @ 210 mls/hr 1X ONCE IV Last administered on 07/01/21at 14:56; Start 07/01/21 at 14:00; Stop 07/01/21 at 14:59; Status DC Remdesivir 100 mg/ Sodium Chloride 230 ml @ 460 mls/hr Q24H IV ; Start 07/02/21 at 14:00; Stop 07/05/21 at 14:29 Alprazolam (Xanax) 0.5 mg PRN Q8HRS PRN PO ANXIETY / AGITATION Last administered on 07/02/21at 05:49; Start 07/01/21 at 16:00 Levothyroxine Sodium (Synthroid) 25 mcg DAILY06 PO Last administered on 07/02/21at 05:49; Start 07/02/21 at 06:00 Sertraline HCl (Zoloft) 50 mg DAILY PO ; Start 07/02/21 at 09:00 Tizanidine HCl (Zanaflex) 4 mg PRN TID PRN PO MUSCLE PAIN; Start 07/01/21 at 16:00 Tramadol HCl (Ultram) 50 mg PRN Q6HRS PRN PO MILD TO MODERATE PAIN; Start 07/01/21 at 16:00; Stop 07/01/21 at 17:44; Status DC Tramadol HCl (Ultram) 50 mg Q6HRS PRN PO PAIN; Start 07/01/21 at 16:00; Status UNV Acetaminophen/ Hydrocodone Bitart (Lortab 5/325) 1 tab PRN Q4HRS PRN PO MODERATE TO SEVERE PAIN Last administered on 07/02/21at 05:49; Start 07/01/21 at 17:45 Acetaminophen (Tylenol) 650 mg PRN Q6HRS PRN PEG MILD PAIN / TEMP > 100.3'F; Start 07/01/21 at 17:45 Active Scripts Active Tramadol Hcl 50 Mg Tablet 50 Mg PO Q6HRS PRN Ibuprofen 800 Mg Tablet 800 Mg PO PRN Q8MIN PRN 10 Days Tramadol Hcl 50 Mg Tablet 1 Tab PO PRN Q6HRS PRN Ibuprofen 600 Mg Tablet 600 Mg PO PRN Q8HRS PRN Cyclobenzaprine Hcl 10 Mg Tablet 1 Tab PO TID Reported Hydrocodone-Apap 5-325 (Hydrocodone Bit/Acetaminophen) 1 Tab Tablet 1 Tab PO PRN Q6HRS PRN Tizanidine Hcl 4 Mg Tablet 1 Tab PO TID PRN Levothyroxine Sodium 25 Mcg Tablet 1 Tab PO DAILY Zoloft (Sertraline Hcl) 100 Mg Tablet 1 Tab PO DAILY Zoloft (Sertraline Hcl) 50 Mg Tablet 1 Tab PO DAILY Xanax (Alprazolam) 0.5 Mg Tablet 0.5 Mg PO PRN Q8HRS PRN Vitals/I & O Vital Sign - Last 24 Hours 07/01/21 07/01/21 07/01/21 07/01/21 09:32 11:48 12:34 14:59 Pulse 46 49 52 Resp 16 20 18 18 B/P (MAP) 134/76 (95) 122/59 (80) 139/74 (95) Pulse Ox 98 98 96 O2 Delivery Room Air Room Air Room Air 07/01/21 07/01/21 07/01/21 07/01/21 16:00 17:56 19:00 20:50 Temp 98.2 98.1 98.2 98.1 Pulse 48 58 Resp 24 17 B/P (MAP) 116/67 (83) 130/60 (83) Pulse Ox 100 97 O2 Delivery Room Air Room Air Room Air Room Air 07/01/21 07/01/21 07/01/21 07/02/21 20:55 21:25 23:02 01:07 Temp 97.9 97.9 Pulse 60 Resp 20 20 17 20 B/P (MAP) 132/60 (84) Pulse Ox 98 O2 Delivery Room Air Room Air Room Air 07/02/21 07/02/21 07/02/21 07/02/21 01:37 02:47 03:00 03:17 Temp 97.8 97.8 Pulse 74 Resp 20 20 18 18 B/P (MAP) 129/62 (84) Pulse Ox 99 O2 Delivery Room Air Room Air Room Air Room Air 07/02/21 07/02/21 05:49 06:19 Resp 20 20 O2 Delivery Room Air Room Air Intake and Output 07/01/21 07/01/21 07/02/21 15:00 23:00 07:00 Intake Total 1000 ml 500 ml Output Total 1200 ml 700 ml 550 ml Balance -200 ml -200 ml -550 ml Justicifation of Admission Dx: Justifications for Admission: Justification of Admission Dx: Yes Chronic Renal Failure: Cardiac Arrhythmias LIBERTY ARITA MD Jul 02, 2021 08:57
[2021-07-02] MEDS ORDERED: SERTRALINE 50 MG TABLET. PO SCH (09:00)
[2021-07-02] MEDS ORDERED: POTASSIUM BICARB 20 MEQ EFFERVESCENT TABLET. PO ONE (09:15)
[2021-07-02 09:20] LABS: BASO % 1 % (0-3); EOS # 0.1 x10^3/uL (0.0-0.7); EOS % 1 % (0-3); HEMATOCRIT 34.9 % (36.0-47.0); HEMOGLOBIN 12.1 g/dL (12.0-15.5); LYMPH # 1.8 x10^3/uL (1.0-4.8); LYMPH % 22 % (24-48); MEAN CORPUSCULAR HEMOGLOBIN 29 pg (25-35); MEAN CORPUSCULAR HGB CONC 35 g/dL (31-37); MEAN CORPUSCULAR VOLUME 85 fL (79-100); MONO # 0.5 x10^3/uL (0.0-1.1); MONO % 6 % (0-9); NEUT # 5.6 x10^3/uL (1.8-7.7); NEUT % 70 % (31-73); PLATELET COUNT 178 x10^3/uL (140-400); RED CELL DISTRIBUTION WIDTH 13.6 % (11.5-14.5)
[2021-07-02] MEDS: ONDANSETRON PF 4 MG/2 ML VIAL. IVP PRN ×3 (09:22→21:11)
[2021-07-02] MEDS: DEXAMETHASONE SOD PHOS 4 MG/ML VIAL IVP SCH (09:22)
[2021-07-02 09:38] LABS: ALBUMIN 2.8 g/dL (3.4-5.0); ALBUMIN/GLOBULIN RATIO 0.7 (1.0-1.7); CALCIUM 8.3 mg/dL (8.5-10.1); CREATININE 1.1 mg/dL (0.6-1.0); GFR 52.8; TOTAL BILIRUBIN 0.4 mg/dL (0.2-1.0)
[2021-07-02] MEDS ORDERED: SERTRALINE 50 MG TABLET. PO ONE (09:45)
--- NOTE | 2021-07-02 10:40 | NUR ---
SW following. Discussed with RN, pt from home with family, room air, regular diet. COVID-19 positive. Cardiology following - pt having an echo today. Med Assist following for self pay status. SW will continue to follow. Addendum: 07/03/21 at 1215 by MANJULA REBOLLAR SW Discharge order for home with self care. No further SW needs.
--- NOTE | 2021-07-02 13:18 | PDOC2 ---
INDIA CLIFFORD APPLICATIONS DEVELOPER 07/02/21 1318: CARDIAC CONSULT DATE OF CONSULT Date of Consult DATE: 07/02/21 TIME: 13:10 REASON FOR CONSULT Reason for Consult: Bradycardia Syncope REFERRING PHYSICIAN Referring Physician: Dr. Dumont SOURCE Source: Chart review, Patient HISTORY OF PRESENT ILLNESS HISTORY OF PRESENT ILLNESS This is a 51 yo female who was diagnosed with COVID 5 days prior to arrival. Presented secondary to syncopal episode. Reports she has been watching television. She go up to use the restroom and next thing she knew EMS had arrived. Patient had experienced a syncopal episode. Has had multiple episodes dizziness, near syncope/syncopal episodes over the last several days. Every episode has occurred upon standing. Has not occurred at rest. She denies any chest pain, palpitations, or nausea/vomiting. Reports mild SOA, cough, and fatigue. Initial labs notable for CARLEE, hyponatremia, and hypokalemia. Is not vaccinated against COVID 19. No further episodes of dizziness/near syncope s/p IVFs. PAST MEDICAL HISTORY Psych: Anxiety, Panic Endocrine: Hypothyroidism PAST SURGICAL HISTORY Past Surgical History: Cholecystectomy, Tubal Ligation, Tonsillectomy, Hysterectomy FAMILY HISTORY Family History: Other (noncontributory ) SOCIAL HISTORY ALCOHOL: none Drugs: None Lives: with Family CURRENT MEDICATIONS CURRENT MEDICATIONS Current Medications Medications (Trade) Dose Ordered Sig/Kayce Route PRN Reason Start Time Stop Time Status Last Admin Dose Admin Remdesivir 200 mg/ Sodium Chloride 210 ml @ 210 mls/hr 1X ONCE IV 07/01/21 14:00 07/01/21 14:59 DC 07/01/21 14:56 Alprazolam (Xanax) 0.5 mg PRN Q8HRS PRN PO ANXIETY / AGITATION 07/01/21 16:00 07/02/21 05:49 Levothyroxine Sodium (Synthroid) 25 mcg DAILY06 PO 07/02/21 06:00 07/02/21 05:49 Sertraline HCl (Zoloft) 50 mg DAILY PO 07/02/21 09:00 07/02/21 09:40 DC 07/02/21 09:22 Acetaminophen/ Hydrocodone Bitart (Lortab 5/325) 1 tab PRN Q4HRS PRN PO MODERATE TO SEVERE PAIN 07/01/21 17:45 07/02/21 11:40 Ondansetron HCl (Zofran) 4 mg PRN Q4HRS PRN IVP NAUSEA/VOMITING 07/02/21 09:00 07/02/21 09:22 Potassium Bicarbonate (Potassium Effervescent Tablet) 40 meq 1X ONCE PO 07/02/21 09:15 07/02/21 09:16 DC 07/02/21 09:23 Sertraline HCl (Zoloft) 100 mg 1X ONCE PO 07/02/21 09:45 07/02/21 09:46 DC 07/02/21 09:48 ALLERGIES ALLERGIES: Coded Allergies: codeine (Unverified Allergy, Intermediate, Itching, 04/06/15) droperidol (Unverified Allergy, Intermediate, Anxiety, 04/06/15) lorazepam (Unverified Allergy, Intermediate, Anxiety, 04/06/15) prochlorperazine (Unverified Allergy, Intermediate, Anxiety, 04/06/15) ROS Review of System 14 point ROS conducted with pertinent positives noted above in HPI PHYSICAL EXAM General: Alert, Oriented X3, Cooperative, No acute distress HEENT: Atraumatic Lungs: Other (on NC) Heart: Regular rate (SR) Abdomen: Soft Extremities: No edema Skin: No significant lesion Neuro: Sensation intact Psych/Mental Status: Mental status NL, Mood NL MUSCULOSKELETAL: No deformity VITALS/I&O VITALS/I&O: Vital Signs Date Time Temp Pulse Resp B/P (MAP) Pulse Ox O2 Delivery O2 Flow Rate FiO2 07/02/21 11:40 Room Air 07/02/21 07:00 98.4 65 17 135/62 (86) 99 98.4 I & O 07/01/21 07/01/21 07/02/21 14:59 22:59 06:59 Intake Total 1000 ml 500 ml Output Total 1200 ml 700 ml 550 ml Balance -200 ml -200 ml -550 ml LABS Lab: Laboratory Tests Test 07/01/21 14:30 07/02/21 08:40 Troponin I Quantitative < 0.017 ng/mL (0.000-0.055) White Blood Count 8.0 x10^3/uL (4.0-11.0) Red Blood Count 4.10 x10^6/uL (3.50-5.40) Hemoglobin 12.1 g/dL (12.0-15.5) Hematocrit 34.9 % (36.0-47.0) L Mean Corpuscular Volume 85 fL (79-100) Mean Corpuscular Hemoglobin 29 pg (25-35) Mean Corpuscular Hemoglobin Concent 35 g/dL (31-37) Red Cell Distribution Width 13.6 % (11.5-14.5) Platelet Count 178 x10^3/uL (140-400) Neutrophils (%) (Auto) 70 % (31-73) Lymphocytes (%) (Auto) 22 % (24-48) L Monocytes (%) (Auto) 6 % (0-9) Eosinophils (%) (Auto) 1 % (0-3) Basophils (%) (Auto) 1 % (0-3) Neutrophils # (Auto) 5.6 x10^3/uL (1.8-7.7) Lymphocytes # (Auto) 1.8 x10^3/uL (1.0-4.8) Monocytes # (Auto) 0.5 x10^3/uL (0.0-1.1) Eosinophils # (Auto) 0.1 x10^3/uL (0.0-0.7) Basophils # (Auto) 0.0 x10^3/uL (0.0-0.2) Sodium Level 139 mmol/L (136-145) Potassium Level 3.0 mmol/L (3.5-5.1) L Chloride Level 105 mmol/L (98-107) Carbon Dioxide Level 21 mmol/L (21-32) Anion Gap 13 (6-14) Blood Urea Nitrogen 7 mg/dL (7-20) Creatinine 1.1 mg/dL (0.6-1.0) H Estimated GFR (Cockcroft-Gault) 52.8 BUN/Creatinine Ratio 6 (6-20) Glucose Level 135 mg/dL (70-99) H Calcium Level 8.3 mg/dL (8.5-10.1) L Total Bilirubin 0.4 mg/dL (0.2-1.0) Aspartate Amino Transferase (AST) 33 U/L (15-37) Alanine Aminotransferase (ALT) 38 U/L (14-59) Alkaline Phosphatase 139 U/L (46-116) H Total Protein 7.0 g/dL (6.4-8.2) Albumin 2.8 g/dL (3.4-5.0) L Albumin/Globulin Ratio 0.7 (1.0-1.7) L Laboratory Tests 07/02/21 08:40 Laboratory Tests 07/02/21 08:40 ASSESSMENT/PLAN ASSESSMENT/PLAN 1. COVID PNA 2. Dizziness, syncope; most probably vasovagal. 3. Bradycardia; sinus. Lowest 45. No pauses. Mean presently 65. No evidence of SSS 4. CARLEE, dehydration; s/p IVFs 5. Hyponatremia, hypokalemia 6. Hypothyroidism; on replacement Recommendations Check orthos TSH Encouraged adequate hydration Outpatient echo when recovered from COVID Ongoing lung optimization, treatment of COVID CORTEZ LUGO MD 07/02/212039: CARDIAC CONSULT ASSESSMENT/PLAN ASSESSMENT/PLAN Patient seen and examined. Agree with TELEVISION ANNOUNCER's assessment and plan. Syncope most prob vasovagal No evidence of SSS on tele Consider outpatient echo and event monitor Continue current treatment for covid pneumonia Thank you for your consultation INDIA CLIFFORD APRN Jul 02, 2021 13:18 CORTEZ LUGO MD Jul 02, 2021 20:40
[2021-07-02] MEDS: REMDESIVIR 100mg in NORMAL SALINE 250ML X 4 DAYS IV SCH (14:32)
[2021-07-02] MEDS: guaiFENesin DM 600/30MG 1 TAB TAB.ER.12H PO SCH ×2 (14:32→21:05)
[2021-07-02] MEDS: tiZANidine 4 MG TABLET. PO PRN ×2 (14:42→22:41)
[2021-07-02] MEDS: ENOXAPARIN 40 MG/0.4 ML SYRINGE. SQ SCH (16:32)
[2021-07-02] MEDS: POTASSIUM CHLORIDE 10MEQ 100 ML IV SCH ×3 (17:12→21:06)
[2021-07-03 02:50] VITALS: BP 142/69
[2021-07-03] MEDS: LEVOTHYROXINE 25 MCG TABLET. PO SCH (06:07)
[2021-07-03 07:00] VITALS: BP 157/82
--- NOTE | 2021-07-03 08:47 | PDOC ---
PROGRESS NOTES Date of Service: DATE: 07/03/21 TIME: 08:47 Chief Complaint Chief Complaint ASSESSMENT AND PLAN COVID-19 Mild bilateral infiltrates. near syncope and then syncope, bradycardic and dehydrated. hypokalemia plan started remdesivir and dexamethasone per protocol. Given the bradycardia / symptoms of lightheadedness and then syncope, consult Cardiology echo replace k sequential compression devices for deep vein thrombosis prophylaxis. Inpatient status is most appropriate as we anticipate a length of stay of 3-4 midnights d./w rn 07-03 IMPROVING NO AV BLOCK D/C HOME TODAY D/C PLANNING 34 MIN History of Present Illness History of Present Illness HISTORY OF PRESENT ILLNESS: This patient is a 51-year-old woman who sees the [facility] in [place] for continuity primary care. She presented to the Emergency Department early today with near syncope and syncope in the setting of COVID diagnosed 5 days ago. She lives with her daughter and father, both of whom are vaccinated for COVID, the patient is not. The patient's 76-year-old father is feeling well and has tested negative for disease, but her young daughter despite the vaccination does have COVID as well, although less symptoms. The patient tells me that she has felt overwhelming weakness, malaise, and just generally feeling lousy for the last week or so. She has not had any nausea, vomiting, change in her bowel habits. She denies any cough or congestion. She has not been able to keep up with her hydration and just does not feel like eating. She has had several events where she felt like she would faint and then finally last night, had a full syncopal event and the next thing that she remembered is 911 was taking her to the hospital. I am seeing her now about 12 hours after admission and she is feeling a little bit better after IV hydration. I saw her in the company of her nurse. She has not had any telemetry events, though has had sinus bradycardia since her presentation here early this morning. I had a chance to discuss her case with Pulmonary Critical Care earlier today and on reviewing her information, they found her to be a good candidate for remdesivir and 10 days of tapering intravenous steroids, those have already been started. All other systems reviewed and negative. PAST MEDICAL HISTORY: 1. Chronic depression and anxiety. 2. Hypothyroidism. 3. Chronic low back pain. Vitals Vitals Vital Signs Date Time Temp Pulse Resp B/P (MAP) Pulse Ox O2 Delivery O2 Flow Rate FiO2 07/03/21 08:23 Room Air 07/03/21 02:50 97.8 62 18 142/69 (93) 98 97.8 Physical Exam Physical Exam GENERAL: The patient is pleasant, alert and oriented x 3, in no acute distress. HEENT: Unremarkable for acute abnormality. NECK: Soft and supple. No adenopathy or thyromegaly noted. CHEST: Clear to auscultation. HEART: S1, S2 normal. Bradycardic. No murmurs or gallops are noted. ABDOMEN: Soft, nontender, nondistended. No masses or organomegaly noted. EXTREMITIES: Unremarkable for acute abnormality. General: Alert, Oriented X3, Cooperative, No acute distress Heart: Regular rate (SR), No murmurs Lungs: Clear Abdomen: Soft Extremities: No edema Skin: No significant lesion Labs LABS Laboratory Tests Test 07/02/21 15:45 Magnesium Level 1.8 mg/dL (1.8-2.4) Thyroid Stimulating Hormone (TSH) 0.179 uIU/mL (0.358-3.74) Assessment and Plan Assessmemt and Plan Problems Medical Problems: (1) COVID-19 Status: Acute (2) Hyponatremia Status: Acute (3) Syncope Status: Acute Comment Review of Relevant I have reviewed the following items cory (where applicable) has been applied. Labs Laboratory Tests Test 07/01/21 09:15 07/01/21 14:30 07/02/21 08:40 07/02/21 15:45 Sodium Level 134 mmol/L (136-145) 139 mmol/L (136-145) Potassium Level 3.0 mmol/L (3.5-5.1) 3.0 mmol/L (3.5-5.1) Chloride Level 99 mmol/L (98-107) 105 mmol/L (98-107) Carbon Dioxide Level 28 mmol/L (21-32) 21 mmol/L (21-32) Anion Gap 7 (6-14) 13 (6-14) Blood Urea Nitrogen 8 mg/dL (7-20) 7 mg/dL (7-20) Creatinine 1.1 mg/dL (0.6-1.0) 1.1 mg/dL (0.6-1.0) Estimated GFR (Cockcroft-Gault) 52.8 52.8 Glucose Level 105 mg/dL (70-99) 135 mg/dL (70-99) Calcium Level 7.9 mg/dL (8.5-10.1) 8.3 mg/dL (8.5-10.1) Troponin I Quantitative < 0.017 ng/mL (0.000-0.055) < 0.017 ng/mL (0.000-0.055) White Blood Count 8.0 x10^3/uL (4.0-11.0) Red Blood Count 4.10 x10^6/uL (3.50-5.40) Hemoglobin 12.1 g/dL (12.0-15.5) Hematocrit 34.9 % (36.0-47.0) Mean Corpuscular Volume 85 fL (79-100) Mean Corpuscular Hemoglobin 29 pg (25-35) Mean Corpuscular Hemoglobin Concent 35 g/dL (31-37) Red Cell Distribution Width 13.6 % (11.5-14.5) Platelet Count 178 x10^3/uL (140-400) Neutrophils (%) (Auto) 70 % (31-73) Lymphocytes (%) (Auto) 22 % (24-48) Monocytes (%) (Auto) 6 % (0-9) Eosinophils (%) (Auto) 1 % (0-3) Basophils (%) (Auto) 1 % (0-3) Neutrophils # (Auto) 5.6 x10^3/uL (1.8-7.7) Lymphocytes # (Auto) 1.8 x10^3/uL (1.0-4.8) Monocytes # (Auto) 0.5 x10^3/uL (0.0-1.1) Eosinophils # (Auto) 0.1 x10^3/uL (0.0-0.7) Basophils # (Auto) 0.0 x10^3/uL (0.0-0.2) BUN/Creatinine Ratio 6 (6-20) Total Bilirubin 0.4 mg/dL (0.2-1.0) Aspartate Amino Transf (AST/SGOT) 33 U/L (15-37) Alanine Aminotransferase (ALT/SGPT) 38 U/L (14-59) Alkaline Phosphatase 139 U/L (46-116) Total Protein 7.0 g/dL (6.4-8.2) Albumin 2.8 g/dL (3.4-5.0) Albumin/Globulin Ratio 0.7 (1.0-1.7) Magnesium Level 1.8 mg/dL (1.8-2.4) Thyroid Stimulating Hormone (TSH) 0.179 uIU/mL (0.358-3.74) Laboratory Tests Test 07/02/21 15:45 Magnesium Level 1.8 mg/dL (1.8-2.4) Thyroid Stimulating Hormone (TSH) 0.179 uIU/mL (0.358-3.74) Medications Current Medications Sodium Chloride 1,000 ml @ 1,000 mls/hr 1X ONCE IV Last administered on 07/01/21at 01:30; Start 07/01/21 at 01:30; Stop 07/01/21 at 02:30; Status DC Iohexol (Omnipaque 350 Mg/ml) 80 ml 1X ONCE IV ; Start 07/01/21 at 03:00; Stop 07/01/21 at 03:01; Status DC Info (CONTRAST GIVEN -- Rx MONITORING) 1 each PRN DAILY PRN MC SEE COMMENTS; Start 07/01/21 at 02:30; Stop 07/03/21 at 02:29; Status DC Potassium Chloride (Klor-Con) 40 meq 1X ONCE PO Last administered on 07/01/21at 03:49; Start 07/01/21 at 03:00; Stop 07/01/21 at 03:01; Status DC Ondansetron HCl (Zofran) 4 mg PRN Q8HRS PRN IVP NAUSEA/VOMITING 1ST CHOICE Last administered on 07/01/21at 17:56; Start 07/01/21 at 03:30; Stop 07/02/21 at 03:29; Status DC Morphine Sulfate (Morphine Sulfate) 2 mg PRN Q2HR PRN IVP SEVERE PAIN 7-10 Last administered on 07/02/21at 02:47; Start 07/01/21 at 03:30; Stop 07/02/21 at 03:29; Status DC Sodium Chloride 1,000 ml @ 100 mls/hr Q10H IV Last administered on 07/01/21at 22:03; Start 07/01/21 at 04:00; Stop 07/02/21 at 03:59; Status DC Acetaminophen (Tylenol) 650 mg PRN Q4HRS PRN PO FEVER > 100.3'F Last administered on 07/01/21at 11:48; Start 07/01/21 at 03:30; Stop 07/01/21 at 17 :42; Status DC Dexamethasone Sodium Phosphate (Decadron) 6 mg DAILY IVP Last administered on 07/02/21at 09:22; Start 07/01/21 at 09:00 Remdesivir 200 mg/ Sodium Chloride 210 ml @ 210 mls/hr 1X ONCE IV Last administered on 07/01/21at 14:56; Start 07/01/21 at 14:00; Stop 07/01/21 at 14:59; Status DC Remdesivir 100 mg/ Sodium Chloride 230 ml @ 460 mls/hr Q24H IV Last administered on 07/02/21at 14:32; Start 07/02/21 at 14:00; Stop 07/05/21 at 14:29 Alprazolam (Xanax) 0.5 mg PRN Q8HRS PRN PO ANXIETY / AGITATION Last administered on 07/02/21at 21:05; Start 07/01/21 at 16:00 Levothyroxine Sodium (Synthroid) 25 mcg DAILY06 PO Last administered on 07/03/21at 06:07; Start 07/02/21 at 06:00 Sertraline HCl (Zoloft) 50 mg DAILY PO Last administered on 07/02/21at 09:22; Start 07/02/21 at 09:00; Stop 07/02/21 at 09:40; Status DC Tizanidine HCl (Zanaflex) 4 mg PRN TID PRN PO MUSCLE PAIN Last administered on 07/02/21at 22:41; Start 07/01/21 at 16:00 Tramadol HCl (Ultram) 50 mg PRN Q6HRS PRN PO MILD TO MODERATE PAIN; Start 07/01/21 at 16:00; Stop 07/01/21 at 17:44; Status DC Tramadol HCl (Ultram) 50 mg Q6HRS PRN PO PAIN; Start 07/01/21 at 16:00; Status UNV Acetaminophen/ Hydrocodone Bitart (Lortab 5/325) 1 tab PRN Q4HRS PRN PO MODERATE TO SEVERE PAIN Last administered on 07/02/21at 21:05; Start 07/01/21 at 17:45 Acetaminophen (Tylenol) 650 mg PRN Q6HRS PRN PEG MILD PAIN / TEMP > 100.3'F; Start 07/01/21 at 17:45 Ondansetron HCl (Zofran) 4 mg PRN Q4HRS PRN IVP NAUSEA/VOMITING Last administered on 07/02/21at 21:11; Start 07/02/21 at 09:00 Potassium Bicarbonate (Potassium Effervescent Tablet) 40 meq 1X ONCE PO Last administered on 07/02/21at 09:23; Start 07/02/21 at 09:15; Stop 07/02/21 at 09:16; Status DC Sertraline HCl (Zoloft) 150 mg DAILY PO ; Start 07/03/21 at 09:00 Sertraline HCl (Zoloft) 100 mg 1X ONCE PO Last administered on 07/02/21at 09:48; Start 07/02/21 at 09:45; Stop 07/02/21 at 09:46; Status DC Guaifenesin (MUCINEX ER with DM) 1 tab BID PO Last administered on 07/02/21at 21:05; Start 07/02/21 at 14:00 Enoxaparin Sodium (Lovenox 40mg Syringe) 40 mg Q12HR SQ Last administered on 07/02/21at 16:32; Start 07/02/21 at 16:00 Potassium Chloride/Water 100 ml @ 100 mls/hr Q1H IV Last administered on 07/02/21at 21:06; Start 07/02/21 at 17:30; Stop 07/02/21 at 20:29; Status DC Active Scripts Active Tramadol Hcl 50 Mg Tablet 50 Mg PO Q6HRS PRN Ibuprofen 800 Mg Tablet 800 Mg PO PRN Q8MIN PRN 10 Days Tramadol Hcl 50 Mg Tablet 1 Tab PO PRN Q6HRS PRN Ibuprofen 600 Mg Tablet 600 Mg PO PRN Q8HRS PRN Cyclobenzaprine Hcl 10 Mg Tablet 1 Tab PO TID Reported Hydrocodone-Apap 5-325 (Hydrocodone Bit/Acetaminophen) 1 Tab Tablet 1 Tab PO PRN Q6HRS PRN Tizanidine Hcl 4 Mg Tablet 1 Tab PO TID PRN Levothyroxine Sodium 25 Mcg Tablet 1 Tab PO DAILY Zoloft (Sertraline Hcl) 100 Mg Tablet 1 Tab PO DAILY Zoloft (Sertraline Hcl) 50 Mg Tablet 1 Tab PO DAILY Xanax (Alprazolam) 0.5 Mg Tablet 0.5 Mg PO PRN Q8HRS PRN Vitals/I & O Vital Sign - Last 24 Hours 07/02/21 07/02/21 07/02/21 07/02/21 11:00 11:40 14:49 15:00 Temp 98.4 98.4 Pulse 58 Resp 16 B/P (MAP) 151/82 (105) 159/72 (101) Pulse Ox 97 97 O2 Delivery Room Air Room Air Room Air 07/02/21 07/02/21 07/02/21 07/02/21 15:00 16:00 16:34 17:19 Temp 98.5 98.5 Pulse 66 Resp 18 B/P (MAP) 162/78 (106) 171/88 (115) Pulse Ox 96 97 O2 Delivery Room Air Room Air Room Air 07/02/21 07/02/21 07/02/21 07/02/21 19:00 19:30 21:05 21:35 Temp 97.5 97.5 Pulse 59 Resp 16 B/P (MAP) 134/76 (95) Pulse Ox 97 97 97 O2 Delivery Room Air Room Air Room Air Room Air 07/02/21 07/03/21 07/03/21 23:26 02:50 08:23 Temp 97.3 97.8 97.3 97.8 Pulse 60 62 Resp 20 18 B/P (MAP) 148/73 (98) 142/69 (93) Pulse Ox 99 98 O2 Delivery Room Air Room Air Room Air Intake and Output 07/02/21 07/02/21 07/03/21 15:00 23:00 07:00 Intake Total 350 ml 120 ml 100 ml Output Total 800 ml 600 ml Balance -450 ml 120 ml -500 ml Justicifation of Admission Dx: Justifications for Admission: Justification of Admission Dx: Yes Chronic Renal Failure: Cardiac Arrhythmias LIBERTY ARITA MD Jul 03, 2021 08:47
[2021-07-03] MEDS ORDERED: SERTRALINE 50 MG TABLET. PO SCH (09:00)
[2021-07-03] MEDS: guaiFENesin DM 600/30MG 1 TAB TAB.ER.12H PO SCH (09:10)
[2021-07-03] MEDS: ENOXAPARIN 40 MG/0.4 ML SYRINGE. SQ SCH (09:11)
[2021-07-03] MEDS: DEXAMETHASONE SOD PHOS 4 MG/ML VIAL IVP SCH (09:11)
[2021-07-03] MEDS: HYDROcodone/APAP 5/325MG 1 TAB TABLET PO PRN ×2 (09:18→13:32)
[2021-07-03] MEDS: ALPRAZolam 0.5 MG TABLET PO PRN (10:41)
[2021-07-03 11:00] VITALS: BP 160/66
--- NOTE | 2021-07-03 12:04 | PDOC3 ---
Discharge Summary Date of Admission: Jul 01, 2021 Date of Discharge: Jul 03, 2021 Follow-Up: 3-5 days Admitting Diagnosis comment: HPI History of Present Illness History of Present Illness HISTORY OF PRESENT ILLNESS: 51-year-old woman who sees the [facility] in [place] for continuity primary care. She presented to the Emergency Department with near syncope and syncope in the setting of COVID diagnosed 8 days ago. She lives with her daughter and father, both of whom are vaccinated for COVID, the patient is not. The patient's 76-year-old father is feeling well and has tested negative for disease, but her young daughter despite the vaccination does have COVID as well, although less symptoms. The patient tells me that she has felt overwhelming weakness, malaise, and just generally feeling lousy for the last week or so. She has not had any nausea, vomiting, change in her bowel habits. She denies any cough or congestion. She has not been able to keep up with her hydration and just does not feel like eating. She has had several events where she felt like she would faint and then finally last night, had a full syncopal event and the next thing that she remembered is 911 was taking her to the hospital. I am seeing her now about 12 hours after admission and she is feeling a little bit better after IV hydration. I saw her in the company of her nurse. She has not had any telemetry events, though has had sinus bradycardia since her presentation here All other systems reviewed and negative. CARDIOLOGY OK WITH D/C PAST MEDICAL HISTORY: 1. Chronic depression and anxiety. 2. Hypothyroidism. 3. Chronic low back pain. D/C CONDITION GOOD COMPLICATIONS NONE PROGNOSIS GOOD WITH COMPLIANCE D/C MEDS SEE JAN DISCHARGE DX CONSULTS CARDIOLOGY D/C DIET REGULAR OFF WORK X 2 WEEKS SE YOUR PCP IN 3-7 DAYS COVID-19 Mild bilateral infiltrates. near syncope and then syncope, bradycardic and dehydrated. hypokalemia plan started remdesivir and dexamethasone per protocol. Given the bradycardia / symptoms of lightheadedness and then syncope, consult Cardiology echo replace k sequential compression devices for deep vein thrombosis prophylaxis. Inpatient status is most appropriate as we anticipate a length of stay of 3-4 midnights d./w rn 8-31 IMPROVING NO AV BLOCK D/C HOME TODAY D/C PLANNING 34 MIN History of Present Illness History of Present Illness HISTORY OF PRESENT ILLNESS: This patient is a 51-year-old woman who sees the [facility] in [place] for continuity primary care. She presented to the Emergency Department early today with near syncope and syncope in the setting of COVID diagnosed 5 days ago. She lives with her daughter and father, both of whom are vaccinated for COVID, the patient is not. The patient's 76-year-old father is feeling well and has tested negative for disease, but her young daughter despite the vaccination does have COVID as well, although less symptoms. The patient tells me that she has felt overwhelming weakness, malaise, and just generally feeling lousy for the last week or so. She has not had any nausea, vomiting, change in her bowel habits. She denies any cough or congestion. She has not been able to keep up with her hydration and just does not feel like eating. She has had several events where she felt like she would faint and then finally last night, had a full syncopal event and the next thing that she remembered is 911 was taking her to the hospital. I am seeing her now about 12 hours after admission and she is feeling a little bit better after IV hydration. I saw her in the company of her nurse. She has not had any telemetry events, though has had sinus bradycardia since her presentation here early this morning. I had a chance to discuss her case with Pulmonary Critical Care earlier today and on reviewing her information, they found her to be a good candidate for remdesivir and 10 days of tapering intravenous steroids, those have already been started. All other systems reviewed and negative. PAST MEDICAL HISTORY: 1. Chronic depression and anxiety. 2. Hypothyroidism. 3. Chronic low back pain. Vitals Vitals Vital Signs Date Time Temp Pulse Resp B/P (MAP) Pulse Ox O2 Delivery O2 Flow Rate FiO2 07/03/21 08:23 Room Air 07/03/21 02:50 97.8 62 18 142/69 (93) 98 97.8 Physical Exam Physical Exam GENERAL: The patient is pleasant, alert and oriented x 3, in no acute distress. HEENT: Unremarkable for acute abnormality. NECK: Soft and supple. No adenopathy or thyromegaly noted. CHEST: Clear to auscultation. HEART: S1, S2 normal. Bradycardic. No murmurs or gallops are noted. ABDOMEN: Soft, nontender, nondistended. No masses or organomegaly noted. EXTREMITIES: Unremarkable for acute abnormality. General: Alert, Oriented X3, Cooperative, No acute distress Heart: Regular rate (SR), No murmurs Lungs: Clear Abdomen: Soft Extremities: No edema Skin: No significant lesion FINAL DIAGNOSIS Problems Medical Problems: (1) COVID-19 Status: Acute (2) Hyponatremia Status: Acute (3) Syncope Status: Acute Brief Hospital Course Ms. Peraza is a 51 old [sex] who presented with [ ] CONDITION AT DISCHARGE: Improved Discharge Medications Current Medications Sodium Chloride 1,000 ml @ 1,000 mls/hr 1X ONCE IV Last administered on 07/01/21at 01:30; Start 07/01/21 at 01:30; Stop 07/01/21 at 02:30; Status DC Iohexol (Omnipaque 350 Mg/ml) 80 ml 1X ONCE IV ; Start 07/01/21 at 03:00; Stop 07/01/21 at 03:01; Status DC Info (CONTRAST GIVEN -- Rx MONITORING) 1 each PRN DAILY PRN MC SEE COMMENTS; Start 07/01/21 at 02:30; Stop 07/03/21 at 02:29; Status DC Potassium Chloride (Klor-Con) 40 meq 1X ONCE PO Last administered on 07/01/21at 03:49; Start 07/01/21 at 03:00; Stop 07/01/21 at 03:01; Status DC Ondansetron HCl (Zofran) 4 mg PRN Q8HRS PRN IVP NAUSEA/VOMITING 1ST CHOICE Last administered on 07/01/21at 17:56; Start 07/01/21 at 03:30; Stop 07/02/21 at 03:29; Status DC Morphine Sulfate (Morphine Sulfate) 2 mg PRN Q2HR PRN IVP SEVERE PAIN 7-10 Last administered on 07/02/21at 02:47; Start 07/01/21 at 03:30; Stop 07/02/21 at 03:29; Status DC Sodium Chloride 1,000 ml @ 100 mls/hr Q10H IV Last administered on 07/01/21 22:03; Start 07/01/21 at 04:00; Stop 07/02/21 at 03:59; Status DC Acetaminophen (Tylenol) 650 mg PRN Q4HRS PRN PO FEVER > 100.3'F Last administered on 07/01/21at 11:48; Start 07/01/21 at 03:30; Stop 07/01/21 at 17:42; Status DC Dexamethasone Sodium Phosphate (Decadron) 6 mg DAILY IVP Last administered on 07/03/21at 09:11; Start 07/01/21 at 09:00 Remdesivir 200 mg/ Sodium Chloride 210 ml @ 210 mls/hr 1X ONCE IV Last administered on 07/01/21at 14:56; Start 07/01/21 at 14:00; Stop 07/01/21 at 14:59; Status DC Remdesivir 100 mg/ Sodium Chloride 230 ml @ 460 mls/hr Q24H IV Last administered on 07/02/21at 14:32; Start 07/02/21 at 14:00; Stop 07/05/21 at 14:29 Alprazolam (Xanax) 0.5 mg PRN Q8HRS PRN PO ANXIETY / AGITATION Last administered on 07/03/21at 10:41; Start 07/01/21 at 16:00 Levothyroxine Sodium (Synthroid) 25 mcg DAILY06 PO Last administered on 07/03/21 06:07; Start 07/02/21 at 06:00 Sertraline HCl (Zoloft) 50 mg DAILY PO Last administered on 07/02/21at 09:22; Start 07/02/21 at 09:00; Stop 07/02/21 at 09:40; Status DC Tizanidine HCl (Zanaflex) 4 mg PRN TID PRN PO MUSCLE PAIN Last administered on 07/02/21at 22:41; Start 07/01/21 at 16:00 Tramadol HCl (Ultram) 50 mg PRN Q6HRS PRN PO MILD TO MODERATE PAIN; Start 07/01/21 at 16:00; Stop 07/01/21 at 17:44; Status DC Tramadol HCl (Ultram) 50 mg Q6HRS PRN PO PAIN; Start 07/01/21 at 16:00; Status UNV Acetaminophen/ Hydrocodone Bitart (Lortab 5/325) 1 tab PRN Q4HRS PRN PO MODER ATE TO SEVERE PAIN Last administered on 07/03/21at 09:18; Start 07/01/21 at 17:45 Acetaminophen (Tylenol) 650 mg PRN Q6HRS PRN PEG MILD PAIN / TEMP > 100.3'F; Start 07/01/21 at 17:45 Ondansetron HCl (Zofran) 4 mg PRN Q4HRS PRN IVP NAUSEA/VOMITING Last adm inistered on 07/02/21at 21:11; Start 07/02/21 at 09:00 Potassium Bicarbonate (Potassium Effervescent Tablet) 40 meq 1X ONCE PO Last administered on 07/02/21 09:23; Start 07/02/21 at 09:15; Stop 07/02/21 at 09:16; Status DC Sertraline HCl (Zoloft) 150 mg DAILY PO Last administered on 07/03/21 09:11; Start 07/03/21 at 09:00 Sertraline HCl (Zoloft) 100 mg 1X ONCE PO Last administered on 07/02/21at 09:48; Start 07/02/21 at 09:45; Stop 07/02/21 at 09:46; Status DC Guaifenesin (MUCINEX ER with DM) 1 tab BID PO Last administered on 07/03/21at 09:10; Start 07/02/21 at 14:00 Enoxaparin Sodium (Lovenox 40mg Syringe) 40 mg Q12HR SQ Last administered on 07/03/21at 09:11; Start 07/02/21 at 16:00 Potassium Chloride/Water 100 ml @ 100 mls/hr Q1H IV Last administered on 07/02/21at 21:06; Start 07/02/21 at 17:30; Stop 07/02/21 at 20:29; Status DC Active Scripts Active Tramadol Hcl 50 Mg Tablet 50 Mg PO Q6HRS PRN Ibuprofen 800 Mg Tablet 800 Mg PO PRN Q8MIN PRN 10 Days Tramadol Hcl 50 Mg Tablet 1 Tab PO PRN Q6HRS PRN Ibuprofen 600 Mg Tablet 600 Mg PO PRN Q8HRS PRN Cyclobenzaprine Hcl 10 Mg Tablet 1 Tab PO TID Reported Hydrocodone-Apap 5-325 (Hydrocodone Bit/Acetaminophen) 1 Tab Tablet 1 Tab PO PRN Q6HRS PRN Tizanidine Hcl 4 Mg Tablet 1 Tab PO TID PRN Levothyroxine Sodium 25 Mcg Tablet 1 Tab PO DAILY Zoloft (Sertraline Hcl) 100 Mg Tablet 1 Tab PO DAILY Zoloft (Sertraline Hcl) 50 Mg Tablet 1 Tab PO DAILY Xanax (Alprazolam) 0.5 Mg Tablet 0.5 Mg PO PRN Q8HRS PRN Vital Signs Vital Signs Date Time Temp Pulse Resp B/P (MAP) Pulse Ox O2 Delivery O2 Flow Rate FiO2 07/03/21 11:00 97.5 68 26 160/66 (97) 99 Room Air 97.5 Labs Laboratory Tests Test 07/01/21 14:30 07/02/21 08:40 07/02/21 15:45 Troponin I Quantitative < 0.017 ng/mL (0.000-0.055) White Blood Count 8.0 x10^3/uL (4.0-11.0) Red Blood Count 4.10 x10^6/uL (3.50-5.40) Hemoglobin 12.1 g/dL (12.0-15.5) Hematocrit 34.9 % (36.0-47.0) Mean Corpuscular Volume 85 fL (79-100) Mean Corpuscular Hemoglobin 29 pg (25-35) Mean Corpuscular Hemoglobin Concent 35 g/dL (31-37) Red Cell Distribution Width 13.6 % (11.5-14.5) Platelet Count 178 x10^3/uL (140-400) Neutrophils (%) (Auto) 70 % (31-73) Lymphocytes (%) (Auto) 22 % (24-48) Monocytes (%) (Auto) 6 % (0-9) Eosinophils (%) (Auto) 1 % (0-3) Basophils (%) (Auto) 1 % (0-3) Neutrophils # (Auto) 5.6 x10^3/uL (1.8-7.7) Lymphocytes # (Auto) 1.8 x10^3/uL (1.0-4.8) Monocytes # (Auto) 0.5 x10^3/uL (0.0-1.1) Eosinophils # (Auto) 0.1 x10^3/uL (0.0-0.7) Basophils # (Auto) 0.0 x10^3/uL (0.0-0.2) Sodium Level 139 mmol/L (136-145) Potassium Level 3.0 mmol/L (3.5-5.1) Chloride Level 105 mmol/L (98-107) Carbon Dioxide Level 21 mmol/L (21-32) Anion Gap 13 (6-14) Blood Urea Nitrogen 7 mg/dL (7-20) Creatinine 1.1 mg/dL (0.6-1.0) Estimated GFR (Cockcroft-Gault) 52.8 BUN/Creatinine Ratio 6 (6-20) Glucose Level 135 mg/dL (70-99) Calcium Level 8.3 mg/dL (8.5-10.1) Total Bilirubin 0.4 mg/dL (0.2-1.0) Aspartate Amino Transf (AST/SGOT) 33 U/L (15-37) Alanine Aminotransferase (ALT/SGPT) 38 U/L (14-59) Alkaline Phosphatase 139 U/L (46-116) Total Protein 7.0 g/dL (6.4-8.2) Albumin 2.8 g/dL (3.4-5.0) Albumin/Globulin Ratio 0.7 (1.0-1.7) Magnesium Level 1.8 mg/dL (1.8-2.4) Thyroid Stimulating Hormone (TSH) 0.179 uIU/mL (0.358-3.74) Laboratory Tests Test 07/02/21 15:45 Magnesium Level 1.8 mg/dL (1.8-2.4) Thyroid Stimulating Hormone (TSH) 0.179 uIU/mL (0.358-3.74) Allergies Allergies Coded Allergies Type Severity Reaction Last Updated Verified codeine Allergy Intermediate Itching 04/06/15 No droperidol Allergy Intermediate Anxiety 04/06/15 No lorazepam Allergy Intermediate Anxiety 04/06/15 No prochlorperazine Allergy Intermediate Anxiety 04/06/15 No Disposition/Orders: D/C to Home Justicifation of Admission Dx: Justifications for Admission: Justification of Admission Dx: Yes Chronic Renal Failure: Cardiac Arrhythmias LIBERTY ARITA MD Jul 03, 2021 12:04
[2021-07-03] MEDS ORDERED: GUAI-108 PO (12:07)
[2021-07-03] MEDS ORDERED: ENOX40DI3 SQ (12:07)
[2021-07-03] MEDS ORDERED: DEXA6TAB6 PO (12:07)
[2021-07-03] MEDS ORDERED: ACET650S PEG (12:07)
--- NOTE | 2021-07-03 12:08 | DISCH ---
DISCHARGE INSTRUCTIONS Condition on Discharge Condition on Discharge: Stable Activity After Discharge Activity Instructions for Disc: Activity as tolerated Driving Instructions after Dis: Do not drive Diet after Discharge Diet after Discharge: Regular Liquid Texture: Thin Liquid Checks after Discharge Checks after discharge: Check blood press - daily Contacting the DRKeren after DC Call your doctor for: If your condition worsens Follow-Up Follow up with: SEE YOUR PCP IN 3-7 DAYS Treatment/Equipment after DC Adaptive Equipment Issued: None LIBERTY ARITA MD Jul 03, 2021 12:08
[2021-07-03] MEDS: REMDESIVIR 100mg in NORMAL SALINE 250ML X 4 DAYS IV SCH (13:52)
--- NOTE | 2021-07-03 14:00 | NUR ---
Discharge Note: [facility] Discharge instructions and discharge home medications reviewed with Patient and a copy given. All questions have been answered and understanding verbalized. The following instructions and handouts were given: discharge instructions, new prescriptions, education and follow up recommendations. Discontinued lines and drains: Peripheral IV discontinued intact. Patient discharged to Home or Self Care with Family Member via Wheelchair off unit by ZURDO Salas
== END 2021-07-03 14:00 | disposition home or self-care (01) | DRG 177 ==
LOC: ER 01:03 → ED HOLD 03:27 → 5 NORTH 04:30 → OBSVTOIN 07-02 10:49
PROVIDERS: ADMIT Internal Medicine; ATTEND Internal Medicine
PROC: XW033E5 Introduction of Remdesivir Anti-infective into Peripheral Vein, Percutaneous Approach, New Technology Group 5 (ICD-10-PCS; principal; 2021-07-02)
DX: U07.1 COVID-19 (principal); J12.82 Pneumonia due to coronavirus disease 2019; E87.1 Hypo-osmolality and hyponatremia; N17.9 Acute kidney failure, unspecified; E03.9 Hypothyroidism, unspecified; E86.0 Dehydration; E87.6 Hypokalemia; F32.9 Major depressive disorder, single episode, unspecified; F41.9 Anxiety disorder, unspecified; G43.909 Migraine, unspecified, not intractable, without status migrainosus; G89.29 Other chronic pain; M54.5 Low back pain; Z90.710 Acquired absence of both cervix and uterus; Z98.51 Tubal ligation status; Z88.5 Allergy status to narcotic agent
CPT/HCPCS: 36415; 71045; 80048; 80053; 81001; 81025; 83605; 83735; 83880; 84100; 84443; 84484; 85025; 85379; 93005; 96360; G0378; G0379; J1100; J1650; J2270; J2405; J3480; J7030; J7050; 99285-25